=== PATIENT | female | born 1985 | race Caucasian/White ===

== ENCOUNTER 2017-04-03 05:45 | Inpatient (IN) | payer OTHER ==
[~2017-04-03] VITALS: Ht 152 cm; Wt 66.2 kg
[~2017-04-03 05:45] MED LIST: CITRIC ACID/SODIUM CITRATE 30 ML SOLUTION UDCUP PO ONE; METOCLOPRAMIDE HCL 5 MG/ML 2 ML VIAL IVP ONE; RINGERS SOLUTION,LACTATED 1,000 ML IV ONE
[2017-04-03] MEDS ORDERED: RINGERS SOLUTION,LACTATED 1,000 ML IV ONE (06:02)
[2017-04-03] MEDS ORDERED: PREN1TAB80 PO (06:04)
[2017-04-03] MEDS ORDERED: LEVO50 PO (06:04)
[2017-04-03 06:06] VITALS: BP 109/57
[2017-04-03 06:37] LABS: BASOPHILS % (AUTO) 0.2 % (0.0-2.0); EOSINOPHILS % (AUTO) 1.1 % (1.0-6.0); HEMOGLOBIN 9.2 g/dL (12.0-16.0); LYMPHOCYTES # (AUTO) 1.6 K/uL (1.0-4.8); MEAN CORPUSCULAR HEMOGLOBIN 27.8 pg (26.0-34.0); MEAN CORPUSCULAR VOLUME 84 fL (80-100); MONOCYTES # (AUTO) 0.6 K/uL (0.1-1.0); MONOCYTES % (AUTO) 5.1 % (2.0-9.0); NEUTROPHILS # (AUTO) 8.5 K/uL (1.8-7.7); NEUTROPHILS % (AUTO) 78.6 % (40.0-70.0); PLATELET COUNT (AUTO) 150 K/uL (150-450); RED BLOOD CELL COUNT(AUTO) 3.32 MIL/uL (4.00-5.20); RED CELL DISTRIBUTION WIDTH 16.2 % (11.5-14.5)
[2017-04-03] MEDS ORDERED: ACETAMINOPHEN/CODEINE 300-30 MG TABLET PO PRN (09:00)
[2017-04-03] MEDS ORDERED: LANOLIN 7 GM OINTMENT TP PRN (09:00)
[2017-04-03] MEDS ORDERED: ACETAMINOPHEN 1000 MG/ISO-OSM 100 ML IV ONE ×2 (09:30→09:31)
[2017-04-03] MEDS ORDERED: MORPHINE SULFATE 10 MG/ML SYRINGE IVP PRN (09:30)
[2017-04-03] MEDS ORDERED: FentaNYL CITRATE-PF 100 MCG/2 ML VIAL IVP PRN (09:30)
[2017-04-03] MEDS ORDERED: MEPERIDINE-PF 25 MG/ML SYRINGE IVP PRN (09:30)
[2017-04-03] MEDS ORDERED: DiphenhydrAMINE HCL 50 MG/ML VIAL IVP PRN ×2 (09:30)
[2017-04-03] MEDS ORDERED: ONDANSETRON HCL 4 MG/2 ML VIAL IVP PRN ×2 (09:30)
[2017-04-03] MEDS ORDERED: NALBUPHINE HCL 10 MG/ML VIAL IVP PRN ×3 (09:30)
[2017-04-03] MEDS ORDERED: NALOXONE HCL 0.4 MG/ML VIAL IVP PRN (09:30)
[2017-04-03] MEDS ORDERED: DEXTROSE 5%-0.45% SODIUM CHL 1,000 ML IV ONE (12:07)
[2017-04-03] MEDS: DEXTROSE 5%-0.45% SODIUM CHL 1,000 ML IV SCH ×3 (12:09→20:50)
[2017-04-03] MEDS: FentaNYL CITRATE-PF 100 MCG/2 ML VIAL IVP PRN ×2 (14:15→22:21)
[2017-04-03] MEDS: ACETAMINOPHEN 1000 MG/ISO-OSM 100 ML IV SCH (18:00)
[2017-04-03] MEDS ORDERED: OXYGEN THERAPY IH SCH ×2 (20:00)
[2017-04-03] MEDS ORDERED: ONDANSETRON HCL 4 MG/2 ML VIAL IVP ONE (22:44)
[2017-04-03] MEDS ORDERED: EPHEDrine SULFATE 50 MG/ML VIAL IM ONE (22:44)
[2017-04-03] MEDS ORDERED: OXYTOCIN 10 UNITS/ML VIAL IM ONE (22:44)
[2017-04-04] MEDS: DEXTROSE 5%-0.45% SODIUM CHL 1,000 ML IV SCH (00:38)
[2017-04-04] MEDS: FentaNYL CITRATE-PF 100 MCG/2 ML VIAL IVP PRN (01:12)
[2017-04-04] MEDS: ACETAMINOPHEN 1000 MG/ISO-OSM 100 ML IV SCH (01:59)
[2017-04-04] MEDS: ACETAMINOPHEN/CODEINE 300-30 MG TABLET PO PRN ×4 (08:17→21:31)
[2017-04-04] MEDS: MAGNESIUM HYDROXIDE SUSPENSION 30 ML UDCUP PO SCH ×2 (08:17→21:01)
[2017-04-04] MEDS: IBUPROFEN 800 MG TABLET PO SCH ×3 (08:18→20:02)
[2017-04-05] MEDS ORDERED: FentaNYL CITRATE-PF 100 MCG/2 ML VIAL IVP ONE (00:48)
[2017-04-05] MEDS ORDERED: MORPHINE SULFATE/PF 0.5 MG/ML 10 ML AMP IVP ONE (00:48)
[2017-04-05] MEDS: IBUPROFEN 800 MG TABLET PO SCH ×4 (02:15→19:58)
[2017-04-05] MEDS: ACETAMINOPHEN/CODEINE 300-30 MG TABLET PO PRN ×3 (04:52→15:37)
[2017-04-05] MEDS: MAGNESIUM HYDROXIDE SUSPENSION 30 ML UDCUP PO SCH ×2 (08:48→21:08)
[2017-04-06] MEDS: IBUPROFEN 800 MG TABLET PO SCH ×2 (02:09→07:44)
[2017-04-06] MEDS: ACETAMINOPHEN/CODEINE 300-30 MG TABLET PO PRN (05:34)
[2017-04-06] MEDS: MAGNESIUM HYDROXIDE SUSPENSION 30 ML UDCUP PO SCH (07:45)
[2017-04-06] MEDS ORDERED: DSS100 PO (08:24)
[2017-04-06] MEDS ORDERED: FERR-89 PO (08:24)
[2017-04-06] MEDS ORDERED: IBUP-2070 PO (08:25)
[2017-04-06] MEDS ORDERED: PERCT PO (08:26)
== END 2017-04-06 10:25 | disposition home or self-care (01) | DRG 766 ==
LOC: 4S 05:45 → OBSVTOIN 05:45
PROVIDERS: ADMIT Obstetrics & Gynecology; ATTEND Obstetrics & Gynecology
PROC: 10D00Z1 Extraction of Products of Conception, Low, Open Approach (ICD-10-PCS; principal; 2017-04-03)
DX: O34.211 Maternal care for low transverse scar from previous cesarean delivery (principal); Z37.0 Single live birth; Z3A.39 39 weeks gestation of pregnancy
CPT/HCPCS: 86850; 86900; 86901; 87081; J0131; J0690; J1200; J2175; J2270; J2274; J2300; J2405; J2590; J3010; J3490; J7120